=== PATIENT | male | born 1980 ===

== ENCOUNTER 2018-10-05 15:45 | Emergency (ER) | payer SELFPAY ==
--- NOTE | 2018-10-05 16:31 | ED PDOC ---
Arrival/HPI - General Chief Complaint: Substance Abuse Historian: Patient - History of Present Illness Narrative History of Present Illness (Text): 10/05/18 16:23 38 y/o male, no significant pmh, nkda, psychiatric history including drug abuse, bib police for medical evaluation for heroine. Pt. 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 No homocidal or suicidal ideation, no auditory or visual hallucination. Past Medical History - Provider Review Nursing Documentation Reviewed: Yes - Psychiatric Hx Substance Use: No - Anesthesia Hx Anesthesia: No Hx Anesthesia Reactions: No Hx Malignant Hyperthermia: No Family/Social History - Physician Review Nursing Documentation Reviewed: Yes Family/Social History: Unknown Family HX Smoking Status: Never Smoked Hx Alcohol Use: No Hx Substance Use: No Allergies/Home Meds Allergies/Adverse Reactions: Allergies No Known Allergies Allergy (Verified 10/05/18 16:10) Review of Systems - Review of Systems Constitutional: absent: Fatigue, Fevers Eyes: absent: Vision Changes ENT: absent: Hearing Changes Respiratory: absent: SOB, Cough Cardiovascular: absent: Chest Pain Gastrointestinal: absent: Abdominal Pain, Diarrhea, Nausea, Vomiting Musculoskeletal: absent: Arthralgias, Back Pain Skin: absent: Rash, Pruritis Neurological: absent: Headache, Dizziness Psychiatric: absent: Anxiety, Depression, Suicidal Ideation Physical Exam - Systems Exam Head: Present: Atraumatic, Normocephalic Pupils: Present: PERRL Extroacular Muscles: Present: EOMI Conjunctiva: Present: Normal Ears: Present: NORMAL TM, Normal Canal. No: Erythema Mouth: Present: Moist Mucous Membranes Pharnyx: No: ERYTHEMA, EXUDATE, TONSILS ENLARGED Nose (External): Present: Atraumatic. No: Abrasion, Contusion, Laceration Nose (Internal): Present: Normal Inspection, No Active Bleeding. No: Rhinorrhea, Septal Deviation, Septal Hematoma, Epistaxis Neck: Present: Normal Range of Motion Respiratory/Chest: Present: Clear to Auscultation, Good Air Exchange. No: Respiratory Distress, Accessory Muscle Use Cardiovascular: Present: Regular Rate and Rhythm, Normal S1, S2. No: Murmurs Abdomen: No: Tenderness, Distention, Peritoneal Signs, Rebound, Guarding Back: Present: Normal Inspection Upper Extremity: Present: Normal Inspection. No: Cyanosis, Edema Lower Extremity: Present: Normal Inspection. No: Edema Neurological: Present: GCS=15, CN II-XII Intact, Speech Normal, Motor Func Grossly Intact, Gait Normal, Memory Normal Skin: Present: Warm, Dry, Normal Color. No: Rashes Psychiatric: Present: Alert, Oriented x 3, Normal Insight, Normal Concentration Medical Decision Making ED Course and Treatment: 10/05/18 16:33 -FS 119 -Pt. has no signs of withdrawal, calm, vitally stable, stated that he just need food. -Food and drink given, -Pt. is medically clear and stable at this time. -Pt. is medically clear and stable at this time for incarceration. Please follow up with your own pmd and psychiatrist within 2 days, return to the ER for any new or worsening signs or symptoms. - PA / [employer] / Resident Statement MD/DO has reviewed & agrees with the documentation as recorded. Disposition/Present on Arrival - Present on Arrival Any Indicators Present on Arrival: No History of DVT/PE: No History of Uncontrolled Diabetes: No Urinary Catheter: No History of Decub. Ulcer: No History Surgical Site Infection Following: None - Disposition Have Diagnosis and Disposition been Completed?: Yes Diagnosis: Drug abuse, General medical exam Disposition: HOME/ ROUTINE Disposition Time: 16:36 Patient Plan: Discharge Condition: GOOD Additional Instructions: -Pt. is medically clear and stable at this time for incarceration. Please f ollow up with your own pmd and psychiatrist within 2 days, return to the ER for any new or worsening signs or symptoms. Referrals: [facility] at [facility] [place] [Outside] - Follow up with primary Forms: [place] ([place]), WORK NOTE
[2018-10-05 17:08] VITALS: BP 126/53; PULSE 73; RESP 19; TEMP 97; O2SAT 99
== END 2018-10-05 17:16 ==
LOC: ED 15:45
DX: F19.10 Other psychoactive substance abuse, uncomplicated (principal); Z65.3 Problems related to other legal circumstances